=== PATIENT | male | born 1990 | race Caucasian/White ===

== ENCOUNTER 2017-03-11 16:01 | Emergency (ER) | payer OTHER ==
[~2017-03-11] VITALS: Ht 167.6 cm; Wt 68.0 kg
[2017-03-11 16:18] VITALS: BP 136/84; PULSE 101; RESP 16; TEMP 99.1; O2SAT 97
[2017-03-11] MEDS ORDERED: POLY17S PO (16:31)
[2017-03-11] MEDS ORDERED: TRAZ100T6 PO (16:31)
[2017-03-11] MEDS ORDERED: CARB200T PO (16:31)
[2017-03-11] MEDS ORDERED: DOCU100C PO (16:31)
[2017-03-11] MEDS ORDERED: CLON0.5T PO (16:31)
[2017-03-11] MEDS ORDERED: BUSP10TA PO (16:31)
[2017-03-11] MEDS ORDERED: ATOR10TA15 PO (16:31)
[2017-03-11] MEDS ORDERED: RISP4TAB2 PO (16:31)
[2017-03-11] MEDS ORDERED: HALOPERIDOL LACTATE 5 MG/ML AMP IM ONE (17:15)
[2017-03-11] MEDS ORDERED: LORazepam 2 MG/ML VIAL IM ONE (17:15)
--- NOTE | 2017-03-11 17:56 | PD ---
HPI Chief Complaint: Psychiatric Symptoms Time Seen by Provider: 17:03 Travel History International Travel<30 days: No Contact w/Intl Traveler<30days: No Traveled to known affect area: No History of Present Illness HPI 26-year-old male arrives by EMS. He has development delay and had been acting aggressively at his assisted living facility. He threw remote control. He has been sexually inappropriate with female staff. History is provided by the hvac service technician of the shelter who has had the patient now for 2 weeks and states that over the past 4 days he has become increasingly uncontrollable. There is been no change in his medication. He has had no fever or vomiting. [facility] Past Medical History Developmental Delay: Yes Tetanus Vaccination: Unknown Past Surgical History Surgical History: Unable to Obtain Social History Alcohol Use: No Tobacco Use: No Substance Use: No Allergies-Medications (Allergen,Severity, Reaction): Coded Allergies: Unable to Assess (Verified Allergy, Unknown, 03/11/17) Reported Meds & Prescriptions Reported Meds & Active Scripts Active Reported Clonazepam 0.5 Mg Tab 0.5 Mg PO BID Polyethylene Glycol 3350 Powder (Polyethylene Glycol) 17 Gram Pow 17 Gm PO DAILY Atorvastatin (Atorvastatin Calcium) 10 Mg Tab 10 Mg PO HS Trazodone (Trazodone HCl) 100 Mg Tablet 100 Mg PO HS Carbamazepine 200 Mg Tab 200 Mg PO TID Buspirone (Buspirone HCl) 10 Mg Tab 10 Mg PO BID Docusate Sodium 100 Mg Cap 50 Mg PO BID Risperidone 4 Mg Tab 4 Mg PO Q12HR Review of Systems Except as stated in HPI: all other systems reviewed are Neg Physical Exam Narrative GENERAL: Well-nourished well-developed 26-year-old male SKIN: Warm and dry. HEAD: Atraumatic. Normocephalic. EYES: Pupils equal and round. No scleral icterus. No injection or drainage. ENT: No nasal bleeding or discharge. Mucous membranes pink and moist. NECK: Trachea midline. No JVD. CARDIOVASCULAR: Appears well perfused. RESPIRATORY: No accessory muscle use. No visible tachypnea. GASTROINTESTINAL: Deferred 2/2 uncooperative state. MUSCULOSKELETAL: Extremities without clubbing, cyanosis, or edema. No obvious deformities. NEUROLOGICAL: Awake and alert. No obvious cranial nerve deficits. Motor grossly within normal limits. Five out of 5 muscle strength in the arms and legs. PSYCHIATRIC: Screen is on occasion intermittently. Smiles when examiner enters the room. Data Data Last Documented VS Vital Signs Date Time Temp Pulse Resp B/P (MAP) Pulse Ox O2 Delivery O2 Flow Rate FiO2 03/11/17 16:18 99.1 101 16 136/84 (101) 97 Vital signs reviewed Orders Orders Complete Blood Count With Diff (03/11/17 17:13) Comprehensive Metabolic Panel (03/11/17 17:13) Psych Screen (03/11/17 17:13) Haloperidol Inj (Haldol Inj) (03/11/17 17:15) Lorazepam Inj (Ativan Inj) (03/11/17 17:15) Drug Screen, Random Urine (03/11/17 17:13) MDM Medical Decision Making Medical Screen Exam Complete: Yes Emergency Medical Condition: Yes Medical Record Reviewed: Yes Differential Diagnosis Altered mental status/psychosis due to infection/environmental exposure/ metabolic abnormality, polypharmacy, alcohol abuse/intoxication, illicit or prescribed drug abuse, malingering/secondary gain, non-organic psychiatric disease Narrative Course In the case at hand that is considered doubtful that blood work would be useful in determining this cause for this patient's aggressive and sexually inappropriate behavior. He is considered medically stable. Diagnosis Primary Impression: Aggressive behavior Additional Impression: Inappropriate sexual behavior Bao Cannon MD Mar 11, 2017 17:56
[2017-03-12 06:21] VITALS: RESP 18
--- NOTE | 2017-03-12 11:52 | PD ---
History of Present Illness Chief Complaint: Psychiatric Symptoms Time Seen by Provider: 10:00 Travel History International Travel<30 Days: No Contact w/Intl Traveler<30days: No Known affected area: No Legal Status Legal Status: Russell Act History of Present Illness: 26-year-old male Drew acted for inappropriate behavior at a correction. Patient's inappropriate behavior was both physical and sexually oriented. However, patient obviously suffers from a significant developmental disability and is mentally retarded. The Russell act does not apply to individuals with developmental disabilities and the patient is not a behavior issue in this emergency department. He was evaluated by this physician and person and the case was discussed with the nurse, Adrienne. This physician notes from the medical record the patient's medicines have not changed recently. This physician feels strongly the patient needs to be taken back to the prescriber of the medicines in order to have them changed to stabilize the patient. Patient will not benefit from psychiatric hospitalization and does not qualify for Russell act. He is exhibiting no suicidal or homicidal ideation, plan or intent. He is exhibiting no evidence of psychotic symptoms. His cognition appears to be baseline. He has not a behavior problem here in the emergency department. [facility] Past Medical History Developmental Delay: Yes Tetanus Vaccination: Unknown Past Surgical History Surgical History: Unable to Obtain Psychiatric History Psychiatric History Hx Psychiatric Treatment: No psychiatric history at this facility. History of Inpatient Treatment: No Social History Hx Alcohol Use: No Hx Tobacco Use: No Hx Substance Use: No Allergies-Medications (Allergen,Severity, Reaction): Coded Allergies: Unable to Assess (Verified Allergy, Unknown, 03/11/17) Reported Meds & Prescriptions Reported Meds & Active Scripts Active Reported Clonazepam 0.5 Mg Tab 0.5 Mg PO BID Polyethylene Glycol 3350 Powder (Polyethylene Glycol) 17 Gram Pow 17 Gm PO DAILY Atorvastatin (Atorvastatin Calcium) 10 Mg Tab 10 Mg PO HS Trazodone (Trazodone HCl) 100 Mg Tablet 100 Mg PO HS Carbamazepine 200 Mg Tab 200 Mg PO TID Buspirone (Buspirone HCl) 10 Mg Tab 10 Mg PO BID Docusate Sodium 100 Mg Cap 50 Mg PO BID Risperidone 4 Mg Tab 4 Mg PO Q12HR Review of Systems Except as stated in HPI: all other systems reviewed are Neg Exam Alert: Yes [place]: Person Mood: Calm Affect: Restricted Speech: Slurred Eye Contact: Indirect Insight/Judgement Impaired but baseline. MDM Medical Decision Making Medical Record Reviewed: Yes Assessment/Plan Patient does not qualify for Russell act and it is being lifted by this physician. [facility] will be contacted and asked to take patient to outpatient prescriber. If patient is having difficulty at correction, medication changes are warranted. This does not require inpatient psychiatric hospitalization. Patient unlikely to gain any significant advantage from psychiatric hospitalization. Orders Orders Complete Blood Count With Diff (03/11/17 17:13) Comprehensive Metabolic Panel (03/11/17 17:13) Psych Screen (03/11/17 17:13) Haloperidol Inj (Haldol Inj) (03/11/17 17:15) Lorazepam Inj (Ativan Inj) (03/11/17 17:15) Drug Screen, Random Urine (03/11/17 17:13) Diet Regular Basic (03/12/17 Breakfast) Diet Regular Basic (03/12/17 Lunch) Results Vital Signs Date Time Temp Pulse Resp B/P (MAP) Pulse Ox O2 Delivery O2 Flow Rate FiO2 03/12/17 06:21 18 03/11/17 16:18 99.1 101 16 136/84 (101) 97 Diagnosis Primary Impression: Mental retardation Guillermo Castro MD Mar 12, 2017 11:51
--- NOTE | 2017-03-12 12:04 | PD ---
Physical Exam Date Seen by Provider: Mar 12, 2017 Time Seen by Provider: 12:03 Narrative 26 yr old male here initially under Russell Act. Seen by Psych and BA lifted. Cleared for discharge back to [facility]. Patient is non verbal. Data Data Last Documented VS Vital Signs Date Time Temp Pulse Resp B/P (MAP) Pulse Ox O2 Delivery O2 Flow Rate FiO2 03/12/17 06:21 18 03/11/17 16:18 99.1 101 136/84 (101) 97 Orders Orders Complete Blood Count With Diff (03/11/17 17:13) Comprehensive Metabolic Panel (03/11/17 17:13) Psych Screen (03/11/17 17:13) Haloperidol Inj (Haldol Inj) (03/11/17 17:15) Lorazepam Inj (Ativan Inj) (03/11/17 17:15) Drug Screen, Random Urine (03/11/17 17:13) Diet Regular Basic (03/12/17 Breakfast) Diet Regular Basic (03/12/17 Lunch) MDM Medical Record Reviewed: Yes Supervised Visit with KAILA: No Differential Diagnosis mental retardation Narrative Course patient cleared for discharge. Diagnosis Primary Impression: Mental retardation Patient Instructions: General Instructions Disposition: 01 DISCHARGE HOME Condition: Stable Alecia Cantu Mar 12, 2017 12:03
[2017-03-12] MEDS ORDERED: clonazePAM 1 MG TAB PO ONE (14:00)
== END 2017-03-12 14:20 | disposition home or self-care (01) ==
LOC: NEPC 16:01 → NEPJ 03-12 14:20
DX: F79 Unspecified intellectual disabilities (principal); F91.8 Other conduct disorders; Z79.899 Other long term (current) drug therapy
CPT/HCPCS: 96372; 99284; J1630; J2060

== ENCOUNTER 2017-03-14 14:14 | Emergency (ER) | payer OTHER ==
[~2017-03-14 14:14] MED LIST: ATOR10TA15 PO; BUSP10TA PO; CARB200T PO; CLON0.5T PO; DOCU100C PO; POLY17S PO; RISP4TAB2 PO; TRAZ100T6 PO
--- NOTE | 2017-03-14 14:38 | PD ---
HPI Chief Complaint: Psychiatric Symptoms Time Seen by Provider: 14:36 Travel History International Travel<30 days: No Contact w/Intl Traveler<30days: No History of Present Illness HPI 26 Yo M with PMH of MR presents to the ED under Russell Act from [facility] for evaluation of inappropriate sexual behavior and some aggressive behaviors in the correction. The patient is nonverbal. He withdrawals from stimulation and is known to be violent with caregivers. Exam and history gathering are limited by these factors. PFSH Past Medical History Developmental Delay: Yes Social History Alcohol Use: No Tobacco Use: No Substance Use: No Allergies-Medications (Allergen,Severity, Reaction): Coded Allergies: No Allergy Information Available (Verified Allergy, Unknown, 03/14/17) Per - "[facility] [place] [facility]" [facility] - Kait Ojeda [phone] - patient has NKA but she clarified that she has not had him as a client for that long. Unable to Assess (Verified Allergy, Unknown, 03/11/17) Reported Meds & Prescriptions Reported Meds & Active Scripts Active Klonopin (Clonazepam) 1 Mg Tab 1 Mg PO BID Reported Clonazepam 0.5 Mg Tab 0.5 Mg PO BID Polyethylene Glycol 3350 Powder (Polyethylene Glycol) 17 Gram Pow 17 Gm PO DAILY Atorvastatin (Atorvastatin Calcium) 10 Mg Tab 10 Mg PO HS Trazodone (Trazodone HCl) 100 Mg Tablet 100 Mg PO HS Carbamazepine 200 Mg Tab 200 Mg PO TID Buspirone (Buspirone HCl) 10 Mg Tab 10 Mg PO BID Docusate Sodium 100 Mg Cap 50 Mg PO BID Risperidone 4 Mg Tab 4 Mg PO Q12HR Review of Systems ROS Limitations: Uncooperative, Combative, Speech Impaired Except as stated in HPI: all other systems reviewed are Neg Physical Exam Narrative GENERAL: Well-nourished white male in NAD. SKIN: Focused skin assessment warm/dry. EYES: No scleral icterus. No injection or drainage. NECK: No JVD. CARDIOVASCULAR: Unable to obtain RESPIRATORY: No retractions or accessory muscle use. GASTROINTESTINAL: Able to obtain MUSCULOSKELETAL: No cyanosis, or edema. BACK: No obvious deformity. Data Data Last Documented VS Vital Signs Date Time Temp Pulse Resp B/P (MAP) Pulse Ox O2 Delivery O2 Flow Rate FiO2 03/14/17 18:05 03/14/17 15:42 97.6 87 18 98 Room Air Orders Orders Ziprasidone Inj (Geodon Inj) (03/14/17 14:45) Case Management Consult (03/14/17 ) [facility] Medical Decision Making Medical Screen Exam Complete: Yes Emergency Medical Condition: Yes Differential Diagnosis Adjustment disorder versus anxiety versus bipolar versus depression versus dementia versus electrolyte disorder versus malingering versus mood disorder versus ODD versus psychosis versus PTSD versus schizophrenia versus schizoaffective disorder versus substance-induced mood disorder versus other Narrative Course 26 Yo M with PMH of MR presents to the ED under Drew Act from [facility] for evaluation of inappropriate sexual behavior and some aggressive behaviors in the correction. The patient is nonverbal. He withdrawals from stimulation and is known to be violent with caregivers. Exam and history gathering are limited by these factors. Vitals reviewed. Limited physical exam is unremarkable. Patient was administered 20 Geodon IM. She was an attempt to calm the patient down in order to obtain some lab work but was on successful. He was evaluated by the psych screener and a Russell act was lifted. The coordinator at his correction agrees to accept the patient back. However she requested that he be provided some medications to calm the patient aggressive behavior. Patient was seen earlier this week and discharged after a dose of Klonopin which seemed to escalate his behavior. We'll prescribe 1 mg Klonopin twice a day and have the patient follow-up with [facility]. He is stable and discharged home. Diagnosis Primary Impression: Mental retardation Additional Impressions: Inappropriate sexual behavior Socially inappropriate behavior Referrals: Primary Care Physician Psychiatrist [facility] Additional Instructions: Begin Klonopin as prescribed tomorrow. Follow-up with [facility] as planned. Return to the ED for any urgent or emergent medical condition. Med/Other Pt SpecificInfo: Prescription(s) given Scripts Clonazepam (Klonopin) 1 Mg Tab 1 MG PO BID, #60 TAB 0 Refills Prov: Guero William MD 03/14/17 Disposition: 01 DISCHARGE HOME Condition: Stable Mary Jo Awan Mar 14, 2017 14:38
[2017-03-14] MEDS ORDERED: ZIPRASIDONE MESYLATE 20 MG VIAL IM ONE (14:45)
[2017-03-14] MEDS ORDERED: diphenhydrAMINE HCL 50 MG/ML VIAL IM ONE (14:45)
[2017-03-14] MEDS ORDERED: LORazepam 2 MG/ML VIAL IM ONE (14:45)
[2017-03-14] MEDS ORDERED: HALOPERIDOL LACTATE 5 MG/ML AMP IM ONE (14:45)
[2017-03-14 15:42] VITALS: BP 124/66; PULSE 87; RESP 18; TEMP 97.6; O2SAT 98
[2017-03-14] MEDS ORDERED: CLON1 PO (16:38)
== END 2017-03-14 18:09 | disposition home or self-care (01) ==
LOC: NEPJ 14:14
DX: F79 Unspecified intellectual disabilities (principal)
CPT/HCPCS: 96372; 99285; J3486

== ENCOUNTER 2017-04-04 16:57 | Observation (INO) | payer OTHER ==
[~2017-04-04 16:57] MED LIST changes: +CLON1 PO
--- NOTE | 2017-04-04 17:30 | PD ---
History of Present Illness Chief Complaint: Psychiatric Symptoms Time Seen by Provider: 17:15 Travel History International Travel<30 Days: No Contact w/Intl Traveler<30days: No Known affected area: No Legal Status Legal Status: [employer] Act History of Present Illness: 26-year-old male with history of developmental disability, well known to this physician and the emergency department staff, brought in under a Russell act for aggressive behavior at his long term. According to the Russell act, Joesph " for up" his long term and needs his medications fixed. At the present time, the patient is calm and cooperative. He is cognitively limited but this is his baseline. He has not answering questions with this physician. He is sitting with his mouth open, watching what goes around him. Patient's developmental disability is considered significant in that he is a poor historian and unable to provide any significant information regarding his condition or what happened prior to his Russell act today. However, the patient is not engaging in any aggressive manner towards himself or anyone else at this point. Therefore, this physician does not have reason to "medicate" him. In fact, the patient can be treated as an outpatient if medication adjustments are necessary. This physician is aware of the Russell act laws are not supposed to be utilized for individuals with a developmental disability. PFSH Past Medical History Cerebral Palsy: Yes Developmental Delay: Yes Psychiatric History Psychiatric History Hx Psychiatric Treatment: No psychiatric history at this facility. History of Inpatient Treatment: No Guns or firearms in home: No Social History Hx Alcohol Use: No Hx Tobacco Use: No Hx Substance Use: No Hx of Substance Use Treatment: No Allergies-Medications (Allergen,Severity, Reaction): Coded Allergies: No Allergy Information Available (Verified Allergy, Unknown, 03/14/17) Per - "[facility] [place] [facility]" Assisted - Kait Eliza [phone] - patient has NKA but she clarified that she has not had him as a client for that long. Unable to Assess (Verified Allergy, Unknown, 03/11/17) Reported Meds & Prescriptions Reported Meds & Active Scripts Active Klonopin (Clonazepam) 1 Mg Tab 1 Mg PO BID Reported Clonazepam 0.5 Mg Tab 0.5 Mg PO BID Polyethylene Glycol 3350 Powder (Polyethylene Glycol) 17 Gram Pow 17 Gm PO DAILY Atorvastatin (Atorvastatin Calcium) 10 Mg Tab 10 Mg PO HS Trazodone (Trazodone HCl) 100 Mg Tablet 100 Mg PO HS Carbamazepine 200 Mg Tab 200 Mg PO TID Buspirone (Buspirone HCl) 10 Mg Tab 10 Mg PO BID Docusate Sodium 100 Mg Cap 50 Mg PO BID Risperidone 4 Mg Tab 4 Mg PO Q12HR Review of Systems Except as stated in HPI: all other systems reviewed are Neg Mental Status Examination Appearance: Disheveled Consciousness: Alert Orientation: Person, Place Motor Activity: Normal gait Speech: Other Language: Other Fund of Knowledge: Poor Attention and Concentration: Inadequate Memory: Impaired Mood: Other Affect: Blunt Thought Process & Associations: Other Thought Content: Appropriate Hallucination Type: None Delusion Type: None Suicidal Ideation: No Suicidal Plan: No Suicidal Intention: No Homicidal Ideation: No Homicidal Plan: No Homicidal Intention: No Insight: Fair Judgment: Impulsive Mental Status Exam Remarks Mental status is felt to be baseline at this time. [facility] Medical Decision Making Medical Record Reviewed: Yes Assessment/Plan This physician examined the patient, spoke with his nurse, Adrienne and reviewed the medical record. Apparently the long term does not wish to take the patient back because they feel he is intermittently dangerous. At this point, the patient remains calm, pleasant, smiling, etc. The long term person , Ms. Guerra, informs our staff that the patient's last appointment at [facility] was met with a decrease in the patient's medications. She feels this has been detrimental to the patient's behavior and would like the medicines reasserted in order to stabilize the patient's mood and aggressiveness. This physician is willing to do so, as medication management is the only methodology by which the patient's intermittent explosive behavior can be stabilized. However, the patient does not benefit from inpatient psychiatric hospitalization and this physician feels the patient's Russell act was inappropriately instituted by law enforcement. Orders Orders Complete Blood Count With Diff (04/04/17 17:22) Comprehensive Metabolic Panel (04/04/17 17:22) Psych Screen (04/04/17 17:22) Drug Screen, Random Urine (04/04/17 17:22) Alcohol (Ethanol) (04/04/17 17:22) Salicylates (Aspirin) (04/04/17 17:22) Tylenol (Acetaminophen) (04/04/17 17:22) Diagnosis Primary Impression: Intermittent explosive disorder Guillermo Castro MD Apr 04, 2017 17:30
--- NOTE | 2017-04-04 17:55 | PD ---
HPI Chief Complaint: Psychiatric Symptoms Time Seen by Provider: 17:23 Travel History International Travel<30 days: No Contact w/Intl Traveler<30days: No Traveled to known affect area: No History of Present Illness HPI 26-year-old male that presents to the ED for evaluation of Drew chisholm. Patient was Drew acted by police secondary to aggressive behavior. Patient has a history of mental illness and is developmentally delayed. For the most part per report patient has been aggressive and breaking stuff and staff at the halfway where he stays our concern for their safety. Patient was Drew acted for his own safety. Patient apparently had some of his medications lower by a psychiatrist recently. He apparently is more aggressive and inappropriate with female provider stand male providers. He voices no complaints but again history is limited secondary to his mental illness. He has no allergies to medication. No other medical issues. PFSH Past Medical History Cerebral Palsy: Yes Developmental Delay: Yes ?: Not Social History Alcohol Use: No Tobacco Use: No Substance Use: No Allergies-Medications (Allergen,Severity, Reaction): Coded Allergies: No Allergy Information Available (Verified Allergy, Unknown, 03/14/17) Per - "[facility] [place] [facility]" [phone] - patient has NKA but she clarified that she has not had him as a client for that long. Unable to Assess (Verified Allergy, Unknown, 03/11/17) Reported Meds & Prescriptions Reported Meds & Active Scripts Active Reported Risperdal (Risperidone) 1 Mg Tab 1 Mg PO DAILY Risperidone 2 Mg Tab 2 Mg PO Q12HR Carbamazepine 200 Mg Tab 150 Mg PO DAILY START ON 11/09/16 Carbamazepine 200 Mg Tab 150 Mg PO BID START ON 11/04/16 Carbamazepine 200 Mg Tab 300 Mg PO BID 1 Days Trazodone (Trazodone HCl) 150 Mg Tablet 150 Mg PO HS Klonopin (Clonazepam) 0.5 Mg Tab 0.5 Mg PO TID Polyethylene Glycol 3350 Powder (Polyethylene Glycol) 17 Gram Pow 17 Gm PO DAILY Atorvastatin (Atorvastatin Calcium) 10 Mg Tab 10 Mg PO HS Buspirone (Buspirone HCl) 10 Mg Tab 10 Mg PO BID Docusate Sodium 100 Mg Cap 50 Mg PO BID Review of Systems ROS Limitations: Poor Historian Except as stated in HPI: all other systems reviewed are Neg Physical Exam Exam Limitations: Poor Historian Narrative GENERAL: SKIN: Warm and dry. HEAD: Atraumatic. Normocephalic. EYES: Pupils equal and round. No scleral icterus. No injection or drainage. ENT: No nasal bleeding or discharge. Mucous membranes pink and moist. Tongue is midline. No blood deviation. NECK: Trachea midline. No JVD. CARDIOVASCULAR: Regular rate and rhythm. No murmurs, S3, S4. RESPIRATORY: No accessory muscle use. Clear to auscultation. Breath sounds equal bilaterally. GASTROINTESTINAL: Abdomen soft, non-tender, nondistended. Hepatic and splenic margins not palpable. MUSCULOSKELETAL: Extremities without clubbing, cyanosis, or edema. No obvious deformities. Full range of motion of the upper and lower extremities bilaterally. 2+ pulses bilaterally. NEUROLOGICAL: Awake and alert. No obvious cranial nerve deficits. Motor grossly within normal limits. Five out of 5 muscle strength in the arms and legs. Normal speech. PSYCHIATRIC: Appropriate mood and affect; insight and judgment questionable. Data Data Orders Orders Psych Screen (04/04/17 17:22) Place In Observation (04/04/17 ) Vital Signs (Adult) Q4H (04/04/17 20:54) Activity Oob With Assistance (04/04/17 20:54) Diet Regular Basic (04/05/17 Breakfast) Sodium Chloride 0.9% Flush (Ns Flush) (04/04/17 21:00) Sodium Chloride 0.9% Flush (Ns Flush) (04/04/17 21:00) Case Management Consult (04/04/17 20:54) Scd Bilateral/Knee High JEANNETTE.BID (04/04/17 20:54) Dru Bilateral/Knee High JEANNETTE.QSHIFT (04/04/17 21:00) Acetaminophen (Tylenol) (04/04/17 21:00) Docusate Sodium-Senna (Tara-Colace) (04/04/17 21:00) Magnesium Hydroxide Liq (Milk Of Magnesi (04/04/17 21:00) Sennosides (Senokot) (04/04/17 21:00) Bisacodyl Supp (Dulcolax Supp) (04/04/17 21:00) Lactulose Liq (Lactulose Liq) (04/04/17 21:00) Buspirone (Buspar) (04/04/17 21:00) Carbamazepine (Tegretol) (04/04/17 21:00) (Nf) Risperidone (04/04/17 21:00) (Nf) Trazodone (04/04/17 21:00) Clonazepam (Klonopin) (04/05/17 09:00) Risperidone (Risperdal) (04/05/17 09:00) Admit Order (Ed Use Only) (04/04/17 21:00) MDM Medical Decision Making Medical Screen Exam Complete: Yes Emergency Medical Condition: Yes Medical Record Reviewed: Yes Differential Diagnosis Depression versus suicidal ideation versus anxiety versus adjustment disorder versus mood disorder versus bipolar disorder versus schizophrenia versus paranoid disorder versus psychosis versus substance abuse versus alcohol abuse versus alcohol induced psychosis versus homicidality addition versus cutting versus personality disorder Narrative Course 26-year-old male that presents for evaluation of psych. Patient was properly examined and was found to have signs and symptoms consistent psychiatric illness. No sign of acute medical distress last one drawn. Patient will be medically clear. Okay to be seen by psych. Russell act was lifted by the psychiatrist. Patient was deemed to be able to be released. Unfortunately the halfway where the patient resides will not accept him back. They want us to call the patient's social service individual. Case management going ball when the recommend 23 hour observation as they will not be able to place the patient until tomorrow at the earliest. Patient was discussed with Dr. Gooden who agrees to admission for FOR placement. Mental health screening was discussed with the patient. Diagnosis Primary Impression: Mentally disabled Additional Impression: Intermittent explosive disorder Admitting Information Admitting Physician Requests: Observation Adan Bradley Apr 04, 2017 17:55
[2017-04-04] MEDS ORDERED: CLON.5 PO (19:39)
[2017-04-04] MEDS ORDERED: CARB200T PO ×2 (19:39)
[2017-04-04] MEDS ORDERED: RISP2TAB2 PO (19:39)
[2017-04-04] MEDS ORDERED: RISP1 PO (19:39)
[2017-04-04] MEDS ORDERED: TRAZ1TAB45 PO (19:39)
[2017-04-04] MEDS ORDERED: SODIUM CHLORIDE 0.9% FLUSH 10 ML FLUSH IV FLUSH PRN (21:00)
[2017-04-04] MEDS: SODIUM CHLORIDE 0.9% FLUSH 10 ML FLUSH IV FLUSH SCH (21:00)
[2017-04-04] MEDS ORDERED: MAGNESIUM HYDROXIDE SUSP 30 ML CUP PO PRN (21:00)
[2017-04-04] MEDS: busPIRone HCL 10 MG TAB PO SCH (21:00)
[2017-04-04] MEDS: carBAMazepine 200 MG TAB PO SCH (21:00)
[2017-04-04] MEDS ORDERED: NON-FORMULARY DRUG (Trazodone 150 MG) PO SCH (21:00)
[2017-04-04] MEDS ORDERED: ACETAMINOPHEN 325 MG TAB PO PRN (21:00)
[2017-04-04] MEDS ORDERED: SENNOSIDES 8.6 MG TAB PO PRN (21:00)
[2017-04-04] MEDS ORDERED: RISPERIDONE 2 MG PO SCH (21:00)
[2017-04-04] MEDS ORDERED: LACTULOSE SYRUP 20 GM/30 ML CUP PO PRN (21:00)
[2017-04-04] MEDS: DOCUSATE SODIUM 50 MG/SENNA 8.6 MG TAB PO SCH (21:00)
[2017-04-04] MEDS ORDERED: BISACODYL 10 MG SUPP RECTAL PRN (21:00)
[2017-04-04] MEDS ORDERED: HYOS0.128 PO (21:04)
[2017-04-04] MEDS: traZODone HCL 50 MG TAB PO SCH (21:15)
[2017-04-04] MEDS ORDERED: PILL SPLITTER OTHER PRN (21:15)
[2017-04-04] MEDS: risperiDONE 1 MG TAB PO SCH (21:15)
--- NOTE | 2017-04-04 21:53 | HHI.HP ---
[facility] Unknown Admission Diagnosis mental delay, aggressive, needs placement Diagnoses: (1) Mentally disabled Diagnosis: Principal (2) Intermittent explosive disorder Diagnosis: Principal (3) Total self-care deficit Diagnosis: Principal Travel History International Travel<30 Days: No Contact w/Intl Traveler <30 Da: No Traveled to Known Affected Are: No History of Present Illness This is a 26-year-old male with PMH of Cerebral Palsy, Mental Retardation and Developmental Delay who was brought to the ER by Police under [place] [facility] from [facility] secondary to aggressive behavior. Initially admitted to [facility] s/p daniela by Psych, determined to have Intermittent Explosive Behavior and Russell Act lifted. [facility], however, will not [facility] pt secondary to violent behavior. Case Management consulted by ER physician, recommendation for Observation for placement. Review of Systems Except as stated in HPI: all other systems reviewed are Neg ROS: Unable to obtain. Past Family Social History Past Medical History PMH: Cerebral Palsy, Mental Retardation and Developmental Delay Past Surgical History PAST SURGICAL HISTORY: Unknown Allergies: Coded Allergies: No Allergy Information Available (Verified Allergy, Unknown, 03/14/17) Per - [phone] - patient has NKA but she clarified that she has not had him as a client for that long. Unable to Assess (Verified Allergy, Unknown, 03/11/17) Family History PAST FAMILY HISTORY: Reviewed. No h/o DM or CAD Social History PAST SOCIAL HISTORY: Negative for, tobacco or drugs. Physical Exam Physical Exam PE: GENERAL: Young male in no acute distress, mentally disabled. HEENT: PERRLA, EOMI. No scleral icterus or conjunctival pallor. No lid lag or facial droop. CARDIOVASCULAR: Regular rate and rhythm. No obvious murmurs to auscultation. No chest tenderness to palpation. RESPIRATORY: No obvious rhonchi or wheezing. Clear to auscultation. Breath sounds equal bilaterally. GASTROINTESTINAL: Abdomen soft, non-tender, nondistended. BS normal. MUSCULOSKELETAL: Extremities without clubbing, cyanosis, or edema. No obvious deformities. NEUROLOGICAL: Awake, alert. No focal neurologic deficits. Moving both upper and lower extremities spontaneously. Caprini VTE Risk Assessment Caprini VTE Risk Assessment: No/Low Risk (score <= 1) Caprini Risk Assessment Model Point Value = 1 Point Value = 2 Point Value = 3 Point Value = 5 Age 41-60 Minor surgery BMI > 25 kg/m2 Swollen legs Varicose veins or History of unexplained or recurrent spontaneous Oral contraceptives or hormone replacement Sepsis (< 1 month) Serious lung disease, including pneumonia (< 1 month) Abnormal pulmonary function Acute myocardial infarction Congestive heart failure (< 1 month) History of inflammatory bowel disease Medical patient at bed rest Age 61-74 Arthroscopic surgery Major open surgery (> 45 min) Laparoscopic surgery (> 45 min) Malignancy Confined to bed (> 72 hours) Immobilizing plaster cast Central venous access Age >= 75 History of VTE Family history of VTE Factor V Leiden Prothrombin [id number] Lupus anticoagulant Anticardiolipin antibodies Elevated serum homocysteine Heparin-induced thrombocytopenia Other congenital or acquired thrombophilia Stroke (< 1 month) Elective arthroplasty Hip, pelvis, or leg fracture Acute spinal cord injury (< 1 month) Prophylaxis Regimen Total Risk Factor Score Risk Level Prophylaxis Regimen 0-1 Low Early ambulation 2 Moderate Order ONE of the following: *Sequential Compression Device (SCD) *Heparin 5000 units SQ BID 3-4 Higher Order ONE of the following medications: *Heparin 5000 units SQ TID *Enoxaparin/Lovenox 40 mg SQ daily (WT < 150 kg, CrCl > 30 mL/min) *Enoxaparin/Lovenox 30 mg SQ daily (WT < 150 kg, CrCl > 10-29 mL/min) *Enoxaparin/Lovenox 30 mg SQ BID (WT < 150 kg, CrCl > 30 mL/min) AND/OR *Sequential Compression Device (SCD) 5 or more Highest Order ONE of the following medications: *Heparin 5000 units SQ TID (Preferred with Epidurals) *Enoxaparin/Lovenox 40 mg SQ daily (WT < 150 kg, CrCl > 30 mL/min) *Enoxaparin/Lovenox 30 mg SQ daily (WT < 150 kg, CrCl > 10-29 mL/min) *Enoxaparin/Lovenox 30 mg SQ BID (WT < 150 kg, CrCl > 30 mL/min) AND *Sequential Compression Device (SCD) Assessment and Plan Problem List: (1) Intermittent explosive disorder ICD Code: F63.81 - Intermittent explosive disorder Status: Acute (2) Mentally disabled ICD Code: F79 - Unspecified intellectual disabilities Status: Acute (3) Total self-care deficit ICD Code: R41.89 - Other symptoms and signs involving cognitive functions and awareness Assessment and Plan A/P: 1. Intermittent Explosive Disorder: [facility] under [place] [facility] for violent/aggressive behavior[facility] Russell Act lifted as pt w/ mental retardation. Resume home medications. Psych eval as needed. 2. Mentally Disabled: h/o Cerebral Palsy w/ Developmental Delay, at baseline. Resume home medications. 3. Total Self Care Deficit: unable to care for self, lives [facility], however home will not accept pt back in light of aggressive behavior. Case Management consulted by ER physician, recommendation for Obs admission in order to find placement. 4. DVT Prophylaxis: SCD/Teds. 5. Social work for d/c planning as needed. 6. Case discussed w/ ER physician at length. Sima Gooden MD Apr 04, 2017 21:53
[2017-04-04 23:14] VITALS: BP 111/57; PULSE 62; RESP 18; TEMP 98.1; O2SAT 97
[2017-04-05 03:19] VITALS: BP 134/87; PULSE 95; RESP 20; TEMP 97.9; O2SAT 97
[2017-04-05] MEDS ORDERED: LORazepam 2 MG/ML VIAL IM ONE (05:00)
[2017-04-05] MEDS ORDERED: HALOPERIDOL LACTATE 5 MG/ML AMP IM ONE (05:00)
[2017-04-05] MEDS ORDERED: HALOPERIDOL LACTATE 5 MG/ML AMP IM PRN ×3 (07:30→23:30)
[2017-04-05] MEDS: busPIRone HCL 10 MG TAB PO SCH ×2 (07:43→22:14)
[2017-04-05] MEDS: DOCUSATE SODIUM 50 MG/SENNA 8.6 MG TAB PO SCH ×2 (07:43→22:14)
[2017-04-05] MEDS: risperiDONE 1 MG TAB PO SCH (07:44)
[2017-04-05] MEDS: clonazePAM 0.5 MG TAB PO SCH ×3 (07:44→17:19)
[2017-04-05] MEDS: carBAMazepine 200 MG TAB PO SCH ×2 (07:44→21:00)
[2017-04-05 07:47] VITALS: BP 128/82; PULSE 82
[2017-04-05] MEDS: SODIUM CHLORIDE 0.9% FLUSH 10 ML FLUSH IV FLUSH SCH ×2 (09:00→21:00)
[2017-04-05] MEDS ORDERED: risperiDONE 1 MG TAB PO SCH (09:00)
[2017-04-05] MEDS ORDERED: CLON0.5T PO (09:22)
--- NOTE | 2017-04-05 10:35 | HHI.PR ---
Subjective Remarks Follow-up for mental retardation and agitation. Patient seen with RN at bedside. The patient was agitated and non-redirectable earlier today and received Haldol. The patient continued to try to ambulate unsteadily after receiving Haldol and had to be placed in soft restraints. The patient is reportedly nonverbal at baseline. A bit sleepy after receiving Haldol but awakens and responds to soft voice. He does not answer/is not able to answer any questions on medical review of systems. RN confirming home medication list. Objective Vitals Vital Signs Date Time Temp Pulse Resp B/P (MAP) Pulse Ox O2 Delivery O2 Flow Rate FiO2 04/05/17 07:47 82 128/82 (97) 04/05/17 03:19 97.9 95 20 134/87 (103) 97 04/04/17 23:14 98.1 62 18 111/57 (75) 97 I/O 04/04/17 04/04/17 04/04/17 04/05/17 04/05/17 04/05/17 07:00 15:00 23:00 07:00 15:00 23:00 Intake Total 60 ml Balance 60 ml Intake Oral 60 ml Objective Remarks GENERAL: Well-developed well-nourished. Sleepy after receiving Haldol but in no acute distress. In soft restraints. SKIN: Warm and dry. No lesions noted. CARDIOVASCULAR: Regular rate and rhythm. No murmur appreciated. RESPIRATORY: No accessory muscle use. Clear to auscultation. Breath sounds equal bilaterally. GASTROINTESTINAL: Abdomen soft, non-tender, nondistended. Bowel sounds x4. MUSCULOSKELETAL: No obvious deformities. No clubbing or cyanosis. No edema. NEUROLOGICAL: Awake and alert. Responds to voice. Moves upper and lower extremities spontaneously. Nonverbal. PSYCHIATRIC: Delayed mood and affect; insight and judgment poor. A/P Problem List: (1) Intermittent explosive disorder ICD Code: F63.81 - Intermittent explosive disorder Status: Acute (2) Mentally disabled ICD Code: F79 - Unspecified intellectual disabilities Status: Chronic Assessment and Plan 26-year-old male with PMH of Cerebral Palsy, Mental Retardation and Developmental Delay who was brought to the ER by Police under Russell Act from [facility] secondary to aggressive behavior. Initially admitted to od, s/p eval by Psych, determined to have Intermittent Explosive Behavior and Russell Act lifted. Retirement, however, will not accept pt secondary to violent behavior. Intermittent Explosive Disorder: sent to ER from [facility] under [place] Act for violent/aggressive behavior, s/p eval by Pscyhiatry, Russell Act lifted as pt w/ mental retardation. RN attempting to reconcile home medications, will resume once reconciled. Will likely consult psychiatry to assist with medication adjustments for continued agitation. Haldol and restraints as needed for now. Mentally Disabled: h/o Cerebral Palsy w/ Developmental Delay, at baseline. Continue home medications. Total Self Care Deficit: unable to care for self secondary to the above, lives [facility], however home will not accept pt back in light of aggressive behavior. Case Management consulted for assistance with safe discharge planning. DVT Prophylaxis: SCD/Teds. Discharge Planning [facility]charge back to [facility] when accepted. Andres Alcaraz Apr 05, 2017 10:35
[2017-04-05 13:56] LABS: BACTERIA, URINE RARE /hpf; BLOOD, URINE NEG (NEG); COMMENT (UR) CULT NOT INDICATED; CULTURE IF INDICATED CULT NOT INDICATED; GLUCOSE,URINE NEG (NEG); KETONE, URINE NEG (NEG); NITRITE,URINE NEG (NEG); PH, URINE 6.5 (5.0-8.5); URINE COLOR LIGHT-YELLOW (YELLW/STRAW)
--- NOTE | 2017-04-05 15:55 | EKG ---
Date Performed: 04/05/2017 Time Performed: 13:16:05 PTAGE: 26 years EKG: Sinus rhythm NORMAL ECG NO PREVIOUS TRACING DOCTOR: Anthony Navarro Interpretating Date/Time 04/05/2017 15:53:56
[2017-04-05 16:02] LABS: AUTOMATED NEUTROPHIL # 5.8 TH/MM3 (1.8-7.7); BASOPHIL % 0.3 % (0.0-2.0); EOSINOPHIL # 0.3 TH/MM3 (0-0.4); EOSINOPHIL % 3.4 % (0.0-4.0); HEMATOCRIT 42.9 % (39.0-51.0); HEMO FLAGS DIFF FINAL; LYMPH % 23.1 % (9.0-44.0); MEAN CELL VOLUME 92.7 FL (80.0-100.0); MEAN CORPUSCULAR HEMOGLOBIN 31.8 PG (27.0-34.0); MEAN CORPUSCULAR HGB CONC 34.2 % (32.0-36.0); MONO % 7.2 % (0.0-8.0); PLATELET COUNT 213 TH/MM3 (150-450); RED BLOOD COUNT 4.63 MIL/MM3 (4.50-5.90); RED CELL DISTRIBUTION WIDTH 12.4 % (11.6-17.2); WHITE BLOOD COUNT 8.8 TH/MM3 (4.0-11.0)
[2017-04-05 16:09] VITALS: BP 120/80; PULSE 93; RESP 20; TEMP 96.8; O2SAT 98
--- NOTE | 2017-04-05 16:14 | HHI.PYPN ---
Subjective Remarks Patient seen and examined. Chart reviewed. Dr. Castro's consultation reviewed. Case discussed with RN who reports that patient was grabbing at items this morning. He received Haldol PRN but was subsequently unsteady and had to be placed into soft wrist restraints. On my exam, patient is presently calm. He is non-verbal. He remains in soft wrist restraints. He is sleeping but easily aroused. Once awakened, he begins rocking in his bed. He does not follow simple commands. Affect is childlike but generally euthymic. No evident side effects from medications. No complaints of pain, when asked. MAR from [employer] reviewed. I note patient has been undergoing recent tapers of several of his psychotropics. In particular, it appears that Klonopin was tapered from 1.5mg BID to 0.5mg TID on 03/31. Risperdal was also tapered from 6mg BID to ?2mg BID (MAR is unclear) around the same time. There was also a planned taper of CBS. His trazodone 150mg qHS and BuSpar 10mg BID appear to have been continued unchanged. I tried to reach out to patient's outpatient prescriber, Delphine Valentine. I left with Ms. Valentine's nurse requesting a call back to discuss rationale for recent med changes. Chief Complaint: Med management Review of Systems ROS Limitations: Speech Impaired, Poor Historian Other Limited ROS because of limitations associated with intellectual disability Mental Status Examination Appearance: Disheveled Consciousness: Alert Orientation: Person (seems to recognize name) Speech: Other (non-verbal) Language: Other (N/A) Fund of Knowledge: Poor (suspect poor) Attention and Concentration: Inadequate Memory: Impaired Mood: Other (unable to assess) Affect: Euthymic, Other (childlike) Thought Process & Associations: Other (unable to assess) Thought Content: Other (unable to assess) Hallucination Type: None (does not appear int stim) Delusion Type: None (unable to assess) Suicidal Ideation: No Suicidal Plan: No Suicidal Intention: No Homicidal Ideation: No Homicidal Plan: No Homicidal Intention: No Insight: Poor Judgment: Poor Mental Status Exam Remarks No hand tremor, no cog-wheeling, no dystonias, no dyskinesias noted. Results Labs Item Value Date Time White Blood Count 8.8 TH/MM3 04/05/17 1530 Hemoglobin 14.7 GM/DL 04/05/17 1530 Platelet Count 213 TH/MM3 04/05/17 1530 Potassium Level 3.7 MEQ/L 04/05/17 1530 Sodium Level 137 MEQ/L 04/05/17 1530 Chloride Level 102 MEQ/L 04/05/17 1530 Carbon Dioxide Level 28.1 MEQ/L 04/05/17 1530 Blood Urea Nitrogen 10 MG/DL 04/05/17 1530 Creatinine 0.77 MG/DL 04/05/17 1530 Random Glucose 108 MG/DL H 04/05/17 1530 Aspartate Amino Transf (AST/SGOT) 21 U/L 04/05/17 1530 Albumin 3.6 GM/DL 04/05/17 1530 Item Value Date Time Alanine Aminotransferase (ALT/SGPT) 27 U/L 04/05/17 1530 Alkaline Phosphatase 109 U/L 04/05/17 1530 No CBZ level obtained, EKG NSR with QTc 378ms. Vitals/IOs Vital Signs Date Time Temp Pulse Resp B/P (MAP) Pulse Ox O2 Delivery O2 Flow Rate FiO2 04/05/17 07:47 82 128/82 (97) 04/05/17 03:19 97.9 20 97 Intake and Output 04/05/17 04/05/17 04/06/17 08:00 16:00 00:00 Intake Total 60 ml Balance 60 ml Assessment & Plan Problem List: (1) Intermittent explosive disorder ICD Codes: F63.81 - Intermittent explosive disorder Status: Acute (2) Intellectual disability ICD Codes: F79 - Unspecified intellectual disabilities Assessment & Plan It appears outpatient provider was in process of taper of most of patient's psychotropics, rationale presently unclear. I also see in Dr. Castro's note that tapering of meds may have resulted in worsening of behaviors in the setting of patient's intellectual disability. Decrement in patient's Risperdal seems particularly abrupt if MAR is accurate (12mg total daily dose to 4mg total daily dose). Given problematic behaviors in [facility]U, I think it makes sense to re-titrate this agent to start. Recommend following med regimen, with further adjustments as necessitated by behaviors: --Titrate Risperdal to 3mg BID with plans for further titration if needed --Continue CBZ 300mg BID and check a level tomorrow morning to ensure it is not too high. Check follow-up level in 4 days to ensure level remains stable and within the therapeutic range. --Continue Klonopin 0.5mg TID. --Continue trazodone 150mg qHS. --Continue BuSpar 10mg BID. --Continue Haldol PRN as ordered. --I will apprise Dr. Choe of the case Wednesday. Case d/w PA in [facility] Evonne Alcaraz. Thank you for this consultation. Justification for Cont. Inpt. Per primary team. Request HC Surrog/Guard Advoc?: No Anthony Disla MD Apr 05, 2017 16:14
[2017-04-05 16:15] LABS: ANION GAP 7 MEQ/L (5-15); AST (GOT) 21 U/L (15-37); BICARBONATE 28.1 MEQ/L (21.0-32.0); BLOOD UREA NITROGEN 10 MG/DL (7-18); CHLORIDE 102 MEQ/L (98-107); GLOMERULAR FILTRATION RATE 121 ML/MIN (>89); POTASSIUM 3.7 MEQ/L (3.5-5.1); SODIUM (NA) 137 MEQ/L (136-145)
[2017-04-05 16:20] LABS: ALKALINE PHOSPHATASE 109 U/L (45-117); ALT (GPT) 27 U/L (12-78); TOTAL BILIRUBIN ADULT 0.2 MG/DL (0.2-1.0)
[2017-04-05 19:52] VITALS: BP 128/75; PULSE 90; RESP 18; TEMP 98.1; O2SAT 97
[2017-04-05] MEDS: risperiDONE ODT 3 MG TAB PO SCH (22:13)
[2017-04-05] MEDS: HYOSCYAMINE 0.125 MG TAB PO SCH (22:14)
[2017-04-05] MEDS: traZODone HCL 50 MG TAB PO SCH (22:14)
[2017-04-05 23:12] VITALS: BP 124/70; PULSE 89; RESP 18; TEMP 98; O2SAT 98
[2017-04-06] MEDS: clonazePAM 0.5 MG TAB PO SCH (08:26)
[2017-04-06] MEDS: HYOSCYAMINE 0.125 MG TAB PO SCH (08:27)
[2017-04-06] MEDS: risperiDONE ODT 3 MG TAB PO SCH (08:27)
[2017-04-06] MEDS: busPIRone HCL 10 MG TAB PO SCH (08:27)
[2017-04-06] MEDS: carBAMazepine 200 MG TAB PO SCH (08:27)
[2017-04-06] MEDS: SODIUM CHLORIDE 0.9% FLUSH 10 ML FLUSH IV FLUSH SCH (08:28)
[2017-04-06] MEDS: DOCUSATE SODIUM 50 MG/SENNA 8.6 MG TAB PO SCH (08:28)
[2017-04-06 09:00] VITALS: BP 114/58; PULSE 88; RESP 21; TEMP 98.1; O2SAT 96
--- NOTE | 2017-04-06 09:18 | HHI.PR ---
Subjective Remarks Follow-up for mental retardation and agitation. The patient is sitting up being fed breakfast by BUSINESS RISK ANALYST. The patient smiles when greeted. He is out of restraints. He did not require anymore Haldol overnight. Objective Vitals Vital Signs Date Time Temp Pulse Resp B/P (MAP) Pulse Ox O2 Delivery O2 Flow Rate FiO2 04/06/17 09:00 98.1 88 21 114/58 (76) 96 04/05/17 23:12 98.0 89 18 124/70 (88) 98 04/05/17 19:52 98.1 90 18 128/75 (92) 97 04/05/17 16:09 96.8 93 20 120/80 (93) 98 I/O 04/05/17 04/05/17 04/05/17 04/06/17 04/06/17 04/06/17 07:00 15:00 23:00 07:00 15:00 23:00 Intake Total 60 ml 1500 ml Balance 60 ml 1500 ml Intake Oral 60 ml 1500 ml Result Diagram: 04/05/17 1530 04/05/17 1530 Objective Remarks GENERAL: Well-developed well-nourished. No acute distress. SKIN: Warm and dry. No lesions noted. CARDIOVASCULAR: Regular rate and rhythm. No murmur appreciated. RESPIRATORY: No accessory muscle use. Clear to auscultation. Breath sounds equal bilaterally. MUSCULOSKELETAL: No obvious deformities. No edema. NEUROLOGICAL: Awake and alert. Moves upper and lower extremities spontaneously. Nonverbal. PSYCHIATRIC: Delayed mood and affect; insight and judgment poor. A/P Problem List: (1) Intermittent explosive disorder ICD Code: F63.81 - Intermittent explosive disorder Status: Acute (2) Mentally disabled ICD Code: F79 - Unspecified intellectual disabilities Status: Chronic Assessment and Plan 26-year-old male with PMH of Cerebral Palsy, Mental Retardation and Developmental Delay who was brought to the ER by Police under [facility] secondary to aggressive behavior. Initially admitted to [facility], s/p eval by Psych, determined to have Intermittent Explosive Behavior and Russell Act lifted. [facility] not [facility] pt secondary to violent behavior. Intermittent Explosive Disorder: [facility] to [facility] from [facility] under [facility] Act for violent/aggressive behavior, s/p eval by Pscyhiatry, Russell Act lifted as pt w/ mental retardation. It seems patient was having home antipsychotics down titrated as outpatient. Discussed with psychiatry, Dr. Disla, appreciate assistance with adjusting antipsychotics. It appears Risperdal was down titrated as outpatient, psychiatry increased it to 3 mg twice daily for now and may continue to titrate this. Also continue carbamazepine, BuSpar, trazodone. Haldol and restraints if needed. Mentally Disabled: h/o Cerebral Palsy w/ Developmental Delay, at baseline. Continue home medications. Total Self Care Deficit: unable to care for self secondary to the above, [facility], however home will not accept pt back in light of aggressive behavior. Case Management consulted for assistance with safe discharge planning. DVT Prophylaxis: SCD/Teds. Discharge Planning The patient is medically stable of this time. Addendum 1300: The patient became agitated again today requiring Haldol and restraints. Discussed with psychiatry, Dr. Choe, recommended inpatient psychiatry for management of patient's behaviors. Discussed with my attending Dr. Almendarez and psychiatry Dr. Disla, who agree the patient needs to be Russell acted for further psychiatric treatment with his continued uncontrolled intermittent explosive disorder. The patient was Russell acted and will be discharged to inpatient psychiatry. Andres Alcaraz Apr 06, 2017 09:18
[2017-04-06] MEDS ORDERED: LORazepam 1 MG TAB PO PRN (10:45)
--- NOTE | 2017-04-06 12:31 | HHI.PYPN ---
Subjective Remarks Patient seen and examined on psychiatric follow-up. Chart reviewed. Dr. Castro' s and Dr. Disla consultation and follow-up reviewed. Case discussed with RN who reports that the patient has been increasingly agitated, trying to running away from the ER, had to be permanently restrained. He received Haldol 2 mg PRN but was subsequently unsteady and had to be placed into soft wrist restraints. On psychiatric evaluation patient is restless, moving back and forward his head. He is non-verbal and minimally engageable in a conversation. He does not follow simple verbal commands. Affect is childlike but generally euthymic. No evident side effects from medications. No complaints of pain, when asked. Collateral information from outpatient prescriber: Delphine Valentine: She gently provide her important information of outpatient care. She says that she has been seeing the patient for about a year now. Patient has been stable on carbamazepine 200 mg 3 times a day, BuSpar 20 mg 3 times a day, Risperdal 3 mg daily. Was not aware that the medication were titrated down, but she clarifies that there is a nurse practitioner who works in the residential facility where the patient lives that could do it. Chief Complaint: Med management Mental Status Examination Appearance: Disheveled Consciousness: Alert Orientation: Person (seems to recognize name) Speech: Other (non-verbal) Language: Other (N/A) Fund of Knowledge: Poor (suspect poor) Attention and Concentration: Inadequate Memory: Impaired Mood: Other (unable to assess) Affect: Euthymic, Other (childlike) Thought Process & Associations: Other (unable to assess) Thought Content: Other (unable to assess) Hallucination Type: None (does not appear int stim) Delusion Type: None (unable to assess) Suicidal Ideation: No Suicidal Plan: No Suicidal Intention: No Homicidal Ideation: No Homicidal Plan: No Homicidal Intention: No Insight: Poor Judgment: Poor Results Labs Test 04/05/17 12:50 04/05/17 15:30 04/06/17 08:40 Urine Color LIGHT-YELLOW Urine Turbidity CLEAR Urine pH 6.5 Urine Specific Ripton 1.006 Urine Protein NEG mg/dL Urine Glucose (UA) NEG mg/dL Urine Ketones NEG mg/dL Urine Occult Blood NEG Urine Nitrite NEG Urine Bilirubin NEG Urine Urobilinogen LESS THAN 2.0 MG/DL Urine Leukocyte Esterase NEG Urine RBC 1 /hpf Urine WBC 1 /hpf Urine Bacteria RARE /hpf Microscopic Urinalysis Comment CULT NOT INDICATED White Blood Count 8.8 TH/MM3 Red Blood Count 4.63 MIL/MM3 Hemoglobin 14.7 GM/DL Hematocrit 42.9 % Mean Corpuscular Volume 92.7 FL Mean Corpuscular Hemoglobin 31.8 PG Mean Corpuscular Hemoglobin Concent 34.2 % Red Cell Distribution Width 12.4 % Platelet Count 213 TH/MM3 Mean Platelet Volume 9.4 FL Neutrophils (%) (Auto) 66.0 % Lymphocytes (%) (Auto) 23.1 % Monocytes (%) (Auto) 7.2 % Eosinophils (%) (Auto) 3.4 % Basophils (%) (Auto) 0.3 % Neutrophils # (Auto) 5.8 TH/MM3 Lymphocytes # (Auto) 2.0 TH/MM3 Monocytes # (Auto) 0.6 TH/MM3 Eosinophils # (Auto) 0.3 TH/MM3 Basophils # (Auto) 0.0 TH/MM3 CBC Comment DIFF FINAL Differential Comment Blood Urea Nitrogen 10 MG/DL Creatinine 0.77 MG/DL Random Glucose 108 MG/DL Total Protein 7.7 GM/DL Albumin 3.6 GM/DL Calcium Level 9.0 MG/DL Alkaline Phosphatase 109 U/L Aspartate Amino Transf (AST/SGOT) 21 U/L Alanine Aminotransferase (ALT/SGPT) 27 U/L Total Bilirubin 0.2 MG/DL Sodium Level 137 MEQ/L Potassium Level 3.7 MEQ/L Chloride Level 102 MEQ/L Carbon Dioxide Level 28.1 MEQ/L Anion Gap 7 MEQ/L Estimat Glomerular Filtration Rate 121 ML/MIN Carbamazepine (Tegretol) Level 10.5 MCG/ML Vitals/IOs Vital Signs Date Time Temp Pulse Resp B/P (MAP) Pulse Ox O2 Delivery O2 Flow Rate FiO2 04/06/17 09:00 98.1 88 21 114/58 (45) 96 Assessment & Plan Problem List: (1) Intermittent explosive disorder ICD Codes: F63.81 - Intermittent explosive disorder Status: Acute Assessment & Plan: She continues to be difficult to handle in the hospital, agitated, restless. As a conversation with primary care provider, will increase current psychotropic regimen outpatient doses. Risperdal 3 mg twice a day, carbamazepine 200 mg twice a day, BuSpar 20 mg 3 times a day. Will order carbamazepine levels. Will discontinue clonazepam and Ativan to avoid paradoxical agitation. Will increase Haldol to 5 mg every 8 hours when necessary aggressive behavior and agitation. Patient is for psychiatric admission. (2) Intellectual disability ICD Codes: F79 - Unspecified intellectual disabilities Assessment & Plan Estimated LOS: days Justification for Cont. Inpt. After discussion with outpatient health care provider, primary medical team, nurse in charge, agree with psychiatric admission for stabilization before discharging back to residential facility. Request HC Surrog/Guard Advoc?: No Donovan Choe MD Apr 06, 2017 12:31
[2017-04-06] MEDS ORDERED: carBAMazepine 200 MG TAB PO SCH (13:00)
[2017-04-06] MEDS ORDERED: CARB200T PO (13:11)
[2017-04-06] MEDS ORDERED: RISPM3 PO (13:11)
[2017-04-06] MEDS ORDERED: HALOPERIDOL LACTATE 5 MG/ML AMP IM PRN (15:30)
== END 2017-04-06 17:30 ==
LOC: NEPJ 16:57 → NEDA 21:02 → NEPGCP 22:31
PROVIDERS: ADMIT Hospitalist; ATTEND Hospitalist
DX: F63.81 Intermittent explosive disorder (principal); G80.9 Cerebral palsy, unspecified; F79 Unspecified intellectual disabilities; R45.1 Restlessness and agitation; Z78.1 Physical restraint status; Z79.899 Other long term (current) drug therapy
CPT/HCPCS: 80053; 80156; 81001; 85025; 93005; 96372; G0378; J1630; J2060

== ENCOUNTER 2017-04-06 18:12 | Inpatient (IN) | payer OTHER, MEDICARE ==
[~2017-04-06] VITALS: Ht 157.5 cm; Wt 77.5 kg
[2017-04-06 17:30] VITALS: BP 124/80; PULSE 82; RESP 18; TEMP 98.6; O2SAT 97
[~2017-04-06 18:12] MED LIST changes: -CLON1 PO; +HYOS0.128 PO; +RISP1 PO; +RISP2TAB2 PO; -RISP4TAB2 PO; +RISPM3 PO; -TRAZ100T6 PO; +TRAZ1TAB45 PO
[2017-04-06] MEDS ORDERED: ACETAMINOPHEN 325 MG TAB PO PRN (20:00)
[2017-04-06] MEDS ORDERED: MAGNESIUM HYDROXIDE SUSP 30 ML CUP PO PRN (20:00)
[2017-04-06] MEDS ORDERED: ALUMINUM/MAGNESIUM/SIMETH 30 ML CUP PO PRN (20:00)
[2017-04-06] MEDS ORDERED: PILL SPLITTER OTHER PRN (20:15)
[2017-04-06] MEDS: risperiDONE 3 MG TAB PO SCH (21:00)
[2017-04-06] MEDS: carBAMazepine 200 MG TAB PO SCH (21:00)
[2017-04-06] MEDS: HYOSCYAMINE 0.125 MG TAB PO SCH (21:00)
[2017-04-06] MEDS: traZODone HCL 100 MG TAB PO SCH (21:00)
[2017-04-07 06:11] VITALS: BP 145/71; PULSE 94; RESP 18; TEMP 98; O2SAT 98
[2017-04-07] MEDS: carBAMazepine 200 MG TAB PO SCH ×3 (08:24→20:06)
[2017-04-07] MEDS: busPIRone HCL 10 MG TAB PO SCH ×3 (08:24→17:41)
[2017-04-07] MEDS: risperiDONE 3 MG TAB PO SCH ×2 (08:24→20:06)
[2017-04-07] MEDS: HYOSCYAMINE 0.125 MG TAB PO SCH ×2 (08:26→20:06)
[2017-04-07] MEDS: HALOPERIDOL LACTATE 5 MG/ML AMP IM PRN (10:45)
--- NOTE | 2017-04-07 10:53 | HHI.HP ---
Provisional Diagnosis Admission Date Apr 06, 2017 at 18:12 [place] I. Moderate to severe intellectual disability, intermittent explosive disorder Certification of Person's Competence To Provide Express and Informed Consent I have personally examined Joesph Moffett , a person being served at [facility] on, Apr 07, 2017 10:43. Express and informed consent means consent voluntarily given in writing, by a competent person, after sufficient explanation and disclosure of the subject matter involved to enable the person to make a knowing and willful decision without any element of force, fraud, deceit, duress, or other form of constraint or coercion. This person is 18 years of age or older, is not now known to be incompetent to consent to treatment with a guardian advocate, and does not have a health care surrogate or proxy currently making medical treatment decisions. I have found this person to be one of the following: [] Competent to provide express and informed consent, as defined above, for voluntary admission to this facility and is competent to provide express and informed consent for treatment. He/she has the consistent capacity to make well reasoned, willful, and knowing decisions concerning his or her medical or mental health treatment. The person fully and consistently understands the purpose of the admission for examination/placement and is fully capable of personally exercising all rights assured under [place] [x] Incompetent to provide express and informed consent to voluntary admission, and this is incompetent to provide express and informed consent to treatment. The person must be transferred to involuntary status and a petition for a guardian advocate filed with the Circuit Court. [] Refusing to provide express and informed consent to voluntary admission but is competent to provide express and informed consent for treatment. The person must be discharged or transferred to involuntary status. Form shall be completed within 24 hours of a person's arrival at the receiving facility and filed in the clinical record of each person: 1. Admitted on a voluntary basis 2. Permitted to provide express and informed consent to his/her own treatment 3. Allowed to transfer from involuntary to voluntary status 4. Prior to permitting a person to consent to his or her own treatment after having been previously found incompetent to consent to treatment. History of Present Illness Capacity: Lacks Capacity HPI History of Present Illness: 04/04/[address] Castro: 26-year-old male with history of developmental disability, well known to this physician and the emergency department staff, brought in under a Russell act for [facility] behavior at his [facility]. According to the Russell act, Joesph "for up" his [facility] and needs his medications fixed.At the present time, the patient is calm and cooperative. He is cognitively limited but this is his baseline. He has not answering questions with this physician. He is sitting with his mouth open, watching what goes around him. Patient's developmental disability is considered significant in that he is a poor historian and unable to provide any significant information regarding his condition or what happened prior to his Russell act today. However, the patient is not engaging in any aggressive manner towards himself or anyone else at this point. Therefore, this physician does not have reason to "medicate" him. In fact, the patient can be treated as an outpatient if medication adjustments are necessary. This physician is aware of the Russell act laws are not supposed to be utilized for individuals with a developmental disability. 04/05/2017 Dr. Disla : Patient seen and examined. Chart reviewed. Dr. Castro's consultation reviewed. Case discussed with RN who reports that patient was grabbing at items this morning. He received Haldol PRN but was subsequently unsteady and had to be placed into soft wrist restraints. On my exam, patient is presently calm. He is non-verbal. He remains in soft wrist restraints. He is sleeping but easily aroused. Once awakened, he begins rocking in his bed. He does not follow simple commands. Affect is childlike but generally euthymic. No evident side effects from medications. No complaints of pain, when asked.MAR from [facility] reviewed. I note patient has been undergoing recent tapers of several of his psychotropics. In particular, it appears that Klonopin was tapered from 1.5mg BID to 0.5mg TID on 03/31. Risperdal was also tapered from 6mg BID to ?2mg BID (MAR is unclear) around the same time. There was also a planned taper of CBS. His trazodone 150mg qHS and BuSpar 10mg BID appear to have been continued unchanged.I tried to reach out to patient's outpatient prescriber, Delphine Valentine. I left VM with Ms. Valentine's nurse requesting a call back to discuss rationale for recent med changes. 04/06/2017 by me: Patient seen and examined on psychiatric follow-up. Chart reviewed. Dr. Castro's and Dr. Disla consultation and follow-up reviewed. Case discussed with RN who reports that the patient has been increasingly agitated, trying to running away from the ER, had to be permanently restrained. He received Haldol 2 mg PRN but was subsequently unsteady and had to be placed into soft wrist restraints. On psychiatric evaluation patient is restless, moving back and forward his head. He is non-verbal and minimally engageable in a conversation. He does not follow simple verbal commands. Affect is childlike but generally euthymic. No evident side effects from medications. No complaints of pain, when asked. Collateral information from outpatient prescriber: Delphine Valentine: She gently provide her important information of outpatient care. She says that she has been seeing the patient for about a year now. Patient has been stable on carbamazepine 200 mg 3 times a day, BuSpar 20 mg 3 times a day, Risperdal 3 mg daily. Was not aware that the medication were titrated down, but she clarifies that there is a nurse practitioner who works in the residential facility where the patient lives that could do. 04/07/2017 on psychiatric evaluation today patient is found running in the mason , playful, cheerful. He says that he feels happy, but he is minimally verbal and non-cooperative with the evaluation. As per nurses, patient has been mostly playing in the unit, he has been happy camper. He is restless, but no agitated, no violent or aggressive. Patient is compliant with medications, no significant side effects reported at this moment. I have discussed the case with social media manager to start to coordinate this event. Review of Systems Other No somatic complaint Past Family Social History Coded Allergies: No Allergy Information Available (Verified Allergy, Unknown, 03/14/17) [phone] - patient has NKA but she clarified that she has not had him as a client for that long. Unable to Assess (Verified Allergy, Unknown, 03/11/17) Active Scripts Risperidone Odt (Risperdal M-Tab) 3 Mg Tab, 3 MG PO Q12HR for Psychosis, #30 TAB Prov:Andres Alcaraz 04/06/17 Carbamazepine (Carbamazepine) 200 Mg Tab, 200 MG PO TID for Psychosis, #30 TAB Prov:KieranAndres BROWN 04/06/17 Reported Medications Hyoscyamine (Hyoscyamine) 0.125 Mg Tab, 0.125 MG PO BID for Gastrointestinal disorders, TAB 0 Refills 04/04/17 Trazodone (Trazodone) 150 Mg Tablet, 150 MG PO HS for Control Depression, #30 TAB 0 Refills 04/04/17 Polyethylene Glycol 3350 Powder (Polyethylene Glycol 3350 Powder) 17 Gram Pow, 17 GM PO DAILY for Constipation, #1 BOTTLE 0 Refills 03/11/17 Atorvastatin (Atorvastatin) 10 Mg Tab, 10 MG PO HS for Cholesterol Management, # 30 TAB 0 Refills 03/11/17 Buspirone (Buspirone) 10 Mg Tab, 10 MG PO BID for Anxiety, TAB 0 Refills 03/11/17 Docusate Sodium (Docusate Sodium) 100 Mg Cap, 50 MG PO BID for Prevent Constipation, #60 CAP 0 Refills 03/11/17 Discontinued Reported Medications Clonazepam (Clonazepam) 0.5 Mg Tab, 0.5 MG PO BID, #60 TAB 0 Refills 04/05/17 Risperidone (Risperdal) 1 Mg Tab, 1 MG PO DAILY, #30 TAB 0 Refills 04/04/17 Risperidone (Risperidone) 2 Mg Tab, 2 MG PO Q12HR, #60 TAB 0 Refills 04/04/17 Carbamazepine (Carbamazepine) 200 Mg Tab, 150 MG PO DAILY, #60 TAB 0 Refills START ON 11/09/16 04/04/17 Carbamazepine (Carbamazepine) 200 Mg Tab, 150 MG PO BID, #60 TAB 0 Refills START ON 11/04/16 04/04/17 Carbamazepine (Carbamazepine) 200 Mg Tab, 300 MG PO BID for 1 Day, #3 TAB 0 Refills 04/04/17 Clonazepam (Clonazepam) 0.5 Mg Tab, 0.5 MG PO BID, #60 TAB 0 Refills 03/11/17 Trazodone (Trazodone) 100 Mg Tablet, 100 MG PO HS for Control Depression, #30 TAB 0 Refills 03/11/17 Carbamazepine (Carbamazepine) 200 Mg Tab, 200 MG PO TID, #60 TAB 0 Refills 03/11/17 Risperidone (Risperidone) 4 Mg Tab, 4 MG PO Q12HR, #60 TAB 0 Refills 03/11/17 Discontinued Scripts Clonazepam (Klonopin) 1 Mg Tab, 1 MG PO BID, #60 TAB 0 Refills Prov:Guero William MD 03/14/17 Current Medications Medications (Trade) Dose Ordered Sig/Ajay Route Start Time Stop Time Status Last Admin (Tylenol) 650 mg Q4H PRN PO 04/06/17 20:00 (Milk Of Magnesia Liq) 30 ml DAILY PRN PO 04/06/17 20:00 (Mag-Al Plus Susp Liq) 30 ml Q6H PRN PO 04/06/17 20:00 (risperDAL) 3 mg Q12HR PO 04/06/17 21:00 04/07/17 08:24 (Buspar) 20 mg TID PO 04/07/17 09:00 04/07/17 08:24 (Desyrel) 150 mg HS PO 04/06/17 21:00 04/06/17 21:00 (Levsin) 0.125 mg BID PO 04/06/17 21:00 04/07/17 08:26 (Haldol Inj) 5 mg Q8HR PRN IM 04/06/17 20:00 Future hold (Pill Splitter) 1 ea UNSCH PRN OTHER 04/06/17 20:15 (TEGretol) 200 mg Q8HR PO 04/07/17 14:00 Physical Exam Vital Signs Vital Signs Date Time Temp Pulse Resp B/P (MAP) Pulse Ox O2 Delivery O2 Flow Rate FiO2 04/07/17 06:11 98.0 94 18 145/71 (95) 98 Mental Status Examination Appearance: Disheveled Consciousness: Alert Orientation: Person Motor Activity: Normal gait Speech: Hesitant, Incoherent Language: Other (limited) Fund of Knowledge: Poor Attention and Concentration: Adequate Memory: Impaired Mood: Good Affect: Appropriate Thought Process & Associations: Loose associations Thought Content: Bizarre thinking Hallucination Type: None Delusion Type: None Suicidal Ideation: No Suicidal Plan: No Suicidal Intention: No Homicidal Ideation: No Homicidal Plan: No Homicidal Intention: No Insight: Adequate Judgment: Adequate Assessment & Plan Problem List: (1) Intermittent explosive disorder ICD Codes: F63.81 - Intermittent explosive disorder Status: Acute Assessment & Plan: Patient seen today for evaluation, particularly that yesterday, today patient is more calm and cooperative, a little bit agitated and restless. As a conversation with primary care provider, will increase current psychotropic regimen outpatient doses. Risperdal 3 mg twice a day, carbamazepine 200 mg twice a day, BuSpar 20 mg 3 times a day. Will order carbamazepine levels. Will discontinue clonazepam and Ativan to avoid paradoxical agitation. Will increase Haldol to 5 mg every 8 hours when necessary aggressive behavior and agitation. Patient is for psychiatric admission. conservation worker intervention to start to coordinating a safe discharge planning. Assessment & Plan Estimated LOS: days Donovan Choe MD Apr 07, 2017 10:53
[2017-04-07 11:43] LABS: ANION GAP 9 MEQ/L (5-15); BICARBONATE 26.1 MEQ/L (21.0-32.0); BLOOD UREA NITROGEN 14 MG/DL (7-18); CHLORIDE 103 MEQ/L (98-107); GLOMERULAR FILTRATION RATE 121 ML/MIN (>89); POTASSIUM 3.4 MEQ/L (3.5-5.1); SODIUM (NA) 138 MEQ/L (136-145)
[2017-04-07 11:54] LABS: HDL CHOLESTEROL 42.9 MG/DL (40.0-60.0); LDL CHOLESTEROL 100 MG/DL (0-99)
[2017-04-07 11:55] LABS: AUTOMATED NEUTROPHIL # 5.4 TH/MM3 (1.8-7.7); BASOPHIL % 0.3 % (0.0-2.0); EOSINOPHIL # 0.1 TH/MM3 (0-0.4); EOSINOPHIL % 1.5 % (0.0-4.0); HEMATOCRIT 42.5 % (39.0-51.0); HEMO FLAGS DIFF FINAL; LYMPH % 26.4 % (9.0-44.0); LYMPHOCYTE # 2.2 TH/MM3 (1.0-4.8); MEAN CORPUSCULAR HEMOGLOBIN 31.4 PG (27.0-34.0); MEAN CORPUSCULAR HGB CONC 33.8 % (32.0-36.0); MONO % 8.3 % (0.0-8.0); NEUT % 63.5 % (16.0-70.0); PLATELET COUNT 242 TH/MM3 (150-450); RED BLOOD COUNT 4.57 MIL/MM3 (4.50-5.90); RED CELL DISTRIBUTION WIDTH 12.5 % (11.6-17.2); WHITE BLOOD COUNT 8.5 TH/MM3 (4.0-11.0)
[2017-04-07 14:48] LABS: HEMOGLOBIN A1a 1.4 %; HEMOGLOBIN A1b 0.9 %; HEMOGLOBIN Ao 85.4 %; HEMOGLOBIN F 0.8 %; HEMOGLOBIN LA1C 1.9 %; HEMOGLOBIN P3 3.8 %
--- NOTE | 2017-04-07 15:34 | PD.PSY.CON ---
Provisional Diagnosis Admission Date Apr 06, 2017 at 18:12 [place] I. Moderate to severe intellectual disability, intermittent explosive disorder History of Present Illness Service Psychiatry Consult Requested By Dr. Paulson Reason for Consult Second opinion petition supporting Russell act Primary Care Physician Unknown HPI History of Present Illness: 04/04/[address] Castro: 26-year-old male with history of developmental disability, well known to this physician and the emergency department staff, brought in under a Russell act for aggressive behavior at his [facility]. According to the Russell act, Joesph "for up" his [facility] and needs his medications fixed.At the present time, the patient is calm and cooperative. He is cognitively limited but this is his baseline. He has not answering questions with this physician. He is sitting with his mouth open, watching what goes around him. Patient's developmental disability is considered significant in that he is a poor historian and unable to provide any significant information regarding his condition or what happened prior to his Russell act today. However, the patient is not engaging in any aggressive manner towards himself or anyone else at this point. Therefore, this physician does not have reason to "medicate" him. In fact, the patient can be treated as an outpatient if medication adjustments are necessary. This physician is aware of the Russell act laws are not supposed to be utilized for individuals with a developmental disability. 04/05/2017 Dr. Disla : Patient seen and examined. Chart reviewed. Dr. Castro's consultation reviewed. Case discussed with RN who reports that patient was grabbing at items this morning. He received Haldol PRN but was subsequently unsteady and had to be placed into soft wrist restraints. On my exam, patient is presently calm. He is non-verbal. He remains in soft wrist restraints. He is sleeping but easily aroused. Once awakened, he begins rocking in his bed. He does not follow simple commands. Affect is childlike but generally euthymic. No evident side effects from medications. No complaints of pain, when asked.MAR from [facility] reviewed. I note patient has been undergoing recent tapers of several of his psychotropics. In particular, it appears that Klonopin was tapered from 1.5mg BID to 0.5mg TID on 03/31. Risperdal was also tapered from 6mg BID to ?2mg BID (MAR is unclear) around the same time. There was also a planned taper of CBS. His trazodone 150mg qHS and BuSpar 10mg BID appear to have been continued unchanged.I tried to reach out to patient's outpatient prescriber, Delphine Valentine. I left VM with Ms. Valentine's nurse requesting a call back to discuss rationale for recent med changes. 04/06/2017 by me: Patient seen and examined on psychiatric follow-up. Chart reviewed. Dr. Castro's and Dr. Disla consultation and follow-up reviewed. Case discussed with RN who reports that the patient has been increasingly agitated, trying to running away from the ER, had to be permanently restrained. He received Haldol 2 mg PRN but was subsequently unsteady and had to be placed into soft wrist restraints. On psychiatric evaluation patient is restless, moving back and forward his head. He is non-verbal and minimally engageable in a conversation. He does not follow simple verbal commands. Affect is childlike but generally euthymic. No evident side effects from medications. No complaints of pain, when asked. Collateral information from outpatient prescriber: Delphine Valentine: She gently provide her important information of outpatient care. She says that she has been seeing the patient for about a year now. Patient has been stable on carbamazepine 200 mg 3 times a day, BuSpar 20 mg 3 times a day, Risperdal 3 mg daily. Was not aware that the medication were titrated down, but she clarifies that there is a nurse practitioner who works in the residential facility where the patient lives that could do. 04/07/2017 on psychiatric evaluation today patient is found running in the mason , playful, cheerful. He says that he feels happy, but he is minimally verbal and non-cooperative with the evaluation. As per nurses, patient has been mostly playing in the unit, he has been happy camper. He is restless, but no agitated, no violent or aggressive. Patient is compliant with medications, no significant side effects reported at this moment. I have discussed the case with social worker health services to start to coordinate this event. 04/07/17 Above note dictated by Dr. Paulson reviewed and agreed with. Dr. Paulson has sign first opinion petition supporting Russell act. Patient seen by me on unit patient remains quite childlike riding relative unit in a playful manner. Though there is an irritability also noted. I agree with Dr. Paulson patient does meet criteria for involuntary psychiatric hospitalization the Russell act thus will cosign second opinion petition supporting [facility] Past Family Social History Coded Allergies: No Allergy Information Available (Verified Allergy, Unknown, 03/14/17) Per - [facility]" [facility] [place] [phone] - patient has NKA but she clarified that she has not had him as a client for that long. Unable to Assess (Verified Allergy, Unknown, 03/11/17) Active Scripts Risperidone Odt (Risperdal M-Tab) 3 Mg Tab, 3 MG PO Q12HR for Psychosis, #30 TAB Prov:Andres Alcaraz 04/06/17 Carbamazepine (Carbamazepine) 200 Mg Tab, 200 MG PO TID for Psychosis, #30 TAB Prov:Andres Alcaraz 04/06/17 Reported Medications Hyoscyamine (Hyoscyamine) 0.125 Mg Tab, 0.125 MG PO BID for Gastrointestinal disorders, TAB 0 Refills 04/04/17 Trazodone (Trazodone) 150 Mg Tablet, 150 MG PO HS for Control Depression, #30 TAB 0 Refills 04/04/17 Polyethylene Glycol 3350 Powder (Polyethylene Glycol 3350 Powder) 17 Gram Pow, 17 GM PO DAILY for Constipation, #1 BOTTLE 0 Refills 03/11/17 Atorvastatin (Atorvastatin) 10 Mg Tab, 10 MG PO HS for Cholesterol Management, # 30 TAB 0 Refills 03/11/17 Buspirone (Buspirone) 10 Mg Tab, 10 MG PO BID for Anxiety, TAB 0 Refills 03/11/17 Docusate Sodium (Docusate Sodium) 100 Mg Cap, 50 MG PO BID for Prevent Constipation, #60 CAP 0 Refills 03/11/17 Discontinued Reported Medications Clonazepam (Clonazepam) 0.5 Mg Tab, 0.5 MG PO BID, #60 TAB 0 Refills 04/05/17 Risperidone (Risperdal) 1 Mg Tab, 1 MG PO DAILY, #30 TAB 0 Refills 04/04/17 Risperidone (Risperidone) 2 Mg Tab, 2 MG PO Q12HR, #60 TAB 0 Refills 04/04/17 Carbamazepine (Carbamazepine) 200 Mg Tab, 150 MG PO DAILY, #60 TAB 0 Refills START ON 11/09/16 04/04/17 Carbamazepine (Carbamazepine) 200 Mg Tab, 150 MG PO BID, #60 TAB 0 Refills START ON 11/04/16 04/04/17 Carbamazepine (Carbamazepine) 200 Mg Tab, 300 MG PO BID for 1 Day, #3 TAB 0 Refills 04/04/17 Clonazepam (Clonazepam) 0.5 Mg Tab, 0.5 MG PO BID, #60 TAB 0 Refills 03/11/17 Trazodone (Trazodone) 100 Mg Tablet, 100 MG PO HS for Control Depression, #30 TAB 0 Refills 03/11/17 Carbamazepine (Carbamazepine) 200 Mg Tab, 200 MG PO TID, #60 TAB 0 Refills 03/11/17 Risperidone (Risperidone) 4 Mg Tab, 4 MG PO Q12HR, #60 TAB 0 Refills 03/11/17 Discontinued Scripts Clonazepam (Klonopin) 1 Mg Tab, 1 MG PO BID, #60 TAB 0 Refills Prov:Guero William MD 03/14/17 Current Medications Medications (Trade) Dose Ordered Sig/Ajay Route Start Time Stop Time Status Last Admin (Tylenol) 650 mg Q4H PRN PO 04/06/17 20:00 (Milk Of Magnesia Liq) 30 ml DAILY PRN PO 04/06/17 20:00 (Mag-Al Plus Susp Liq) 30 ml Q6H PRN PO 04/06/17 20:00 (risperDAL) 3 mg Q12HR PO 04/06/17 21:00 04/07/17 08:24 (Buspar) 20 mg TID PO 04/07/17 09:00 04/07/17 13:44 (Desyrel) 150 mg HS PO 04/06/17 21:00 04/06/17 21:00 (Levsin) 0.125 mg BID PO 04/06/17 21:00 04/07/17 08:26 (Haldol Inj) 5 mg Q8HR PRN IM 04/06/17 20:00 Future hold 04/07/17 10:45 (Pill Splitter) 1 ea UNSCH PRN OTHER 04/06/17 20:15 (TEGretol) 200 mg Q8HR PO 04/07/17 14:00 04/07/17 13:45 Physical Exam Vital Signs Vital Signs Date Time Temp Pulse Resp B/P (MAP) Pulse Ox O2 Delivery O2 Flow Rate FiO2 04/07/17 06:11 98.0 94 18 145/71 (95) 98 Lab Results Test 04/07/17 10:25 White Blood Count 8.5 TH/MM3 Red Blood Count 4.57 MIL/MM3 Hemoglobin 14.4 GM/DL Hematocrit 42.5 % Mean Corpuscular Volume 93.0 FL Mean Corpuscular Hemoglobin 31.4 PG Mean Corpuscular Hemoglobin Concent 33.8 % Red Cell Distribution Width 12.5 % Platelet Count 242 TH/MM3 Mean Platelet Volume 9.2 FL Neutrophils (%) (Auto) 63.5 % Lymphocytes (%) (Auto) 26.4 % Monocytes (%) (Auto) 8.3 % Eosinophils (%) (Auto) 1.5 % Basophils (%) (Auto) 0.3 % Neutrophils # (Auto) 5.4 TH/MM3 Lymphocytes # (Auto) 2.2 TH/MM3 Monocytes # (Auto) 0.7 TH/MM3 Eosinophils # (Auto) 0.1 TH/MM3 Basophils # (Auto) 0.0 TH/MM3 CBC Comment DIFF FINAL Differential Comment Blood Urea Nitrogen 14 MG/DL Creatinine 0.77 MG/DL Random Glucose 96 MG/DL Calcium Level 9.2 MG/DL Sodium Level 138 MEQ/L Potassium Level 3.4 MEQ/L Chloride Level 103 MEQ/L Carbon Dioxide Level 26.1 MEQ/L Anion Gap 9 MEQ/L Estimat Glomerular Filtration Rate 121 ML/MIN Triglycerides Level 163 MG/DL Cholesterol Level 175 MG/DL LDL Cholesterol 100 MG/DL HDL Cholesterol 42.9 MG/DL Cholesterol/HDL Ratio 4.07 RATIO Thyroid Stimulating Hormone 3rd Gen 0.996 uIU/ML Mental Status Examination Appearance: Disheveled Consciousness: Alert Orientation: Person Motor Activity: Normal gait Speech: Hesitant, Incoherent Language: Other (limited) Fund of Knowledge: Poor Attention and Concentration: Adequate Memory: Impaired Mood: Good Affect: Appropriate Thought Process & Associations: Loose associations Thought Content: Bizarre thinking Hallucination Type: None Delusion Type: None Suicidal Ideation: No Suicidal Plan: No Suicidal Intention: No Homicidal Ideation: No Homicidal Plan: No Homicidal Intention: No Insight: Adequate Judgment: Adequate Assessment & Plan Problem List: (1) Intermittent explosive disorder ICD Codes: F63.81 - Intermittent explosive disorder Status: Acute Assessment & Plan Estimated LOS: days Robi Saldaña MD Apr 07, 2017 15:34
[2017-04-07 16:00] VITALS: BP 110/64; PULSE 74; RESP 18; O2SAT 97
[2017-04-07] MEDS: traZODone HCL 100 MG TAB PO SCH (20:06)
[2017-04-08] MEDS: carBAMazepine 200 MG TAB PO SCH (05:36)
[2017-04-08 06:06] VITALS: BP 162/90; PULSE 98; RESP 18; TEMP 97.5; O2SAT 98
[2017-04-08] MEDS: busPIRone HCL 10 MG TAB PO SCH ×3 (08:22→17:29)
[2017-04-08] MEDS: risperiDONE 3 MG TAB PO SCH ×2 (08:22→21:16)
[2017-04-08] MEDS: HYOSCYAMINE 0.125 MG TAB PO SCH ×2 (08:22→21:16)
[2017-04-08] MEDS: HALOPERIDOL LACTATE 5 MG/ML AMP IM PRN (08:23)
--- NOTE | 2017-04-08 09:44 | HHI.PYPN ---
Subjective Remarks Patient seen today for psychiatric reevaluation, case was widely discussed with social media intern Malena and nurse in charge Lacy. Patient has been agitated on and off, walking constantly in the unit, at times difficult to redirect, but not aggressive or violent. The problem is that the patient constantly violate other patient spaces. However, during my evaluation patient is calmly eating his breakfast, nonverbal, minimally engageable in a conversation, very childish. She has been compliant with medications, I wonder if constant pacing in the unit could be due to akathisia related with high doses of Risperdal. Review of Systems Except as stated in HPI: all other systems reviewed are Neg Mental Status Examination Appearance: Disheveled Consciousness: Alert Orientation: Person Motor Activity: Normal gait Speech: Hesitant, Incoherent Language: Other (limited) Fund of Knowledge: Poor Attention and Concentration: Adequate Memory: Impaired Mood: Good Affect: Appropriate Thought Process & Associations: Loose associations Thought Content: Bizarre thinking Hallucination Type: None Delusion Type: None Suicidal Ideation: No Suicidal Plan: No Suicidal Intention: No Homicidal Ideation: No Homicidal Plan: No Homicidal Intention: No Insight: Adequate Judgment: Adequate Results Labs Test 04/07/17 10:25 White Blood Count 8.5 TH/MM3 Red Blood Count 4.57 MIL/MM3 Hemoglobin 14.4 GM/DL Hematocrit 42.5 % Mean Corpuscular Volume 93.0 FL Mean Corpuscular Hemoglobin 31.4 PG Mean Corpuscular Hemoglobin Concent 33.8 % Red Cell Distribution Width 12.5 % Platelet Count 242 TH/MM3 Mean Platelet Volume 9.2 FL Neutrophils (%) (Auto) 63.5 % Lymphocytes (%) (Auto) 26.4 % Monocytes (%) (Auto) 8.3 % Eosinophils (%) (Auto) 1.5 % Basophils (%) (Auto) 0.3 % Neutrophils # (Auto) 5.4 TH/MM3 Lymphocytes # (Auto) 2.2 TH/MM3 Monocytes # (Auto) 0.7 TH/MM3 Eosinophils # (Auto) 0.1 TH/MM3 Basophils # (Auto) 0.0 TH/MM3 CBC Comment DIFF FINAL Differential Comment Blood Urea Nitrogen 14 MG/DL Creatinine 0.77 MG/DL Random Glucose 96 MG/DL Calcium Level 9.2 MG/DL Sodium Level 138 MEQ/L Potassium Level 3.4 MEQ/L Chloride Level 103 MEQ/L Carbon Dioxide Level 26.1 MEQ/L Anion Gap 9 MEQ/L Estimat Glomerular Filtration Rate 121 ML/MIN Hemoglobin A1c 5.4 % Triglycerides Level 163 MG/DL Cholesterol Level 175 MG/DL LDL Cholesterol 100 MG/DL HDL Cholesterol 42.9 MG/DL Cholesterol/HDL Ratio 4.07 RATIO Thyroid Stimulating Hormone 3rd Gen 0.996 uIU/ML Vitals/IOs Vital Signs Date Time Temp Pulse Resp B/P (MAP) Pulse Ox O2 Delivery O2 Flow Rate FiO2 04/08/17 06:06 97.5 98 18 162/90 (114) 98 Assessment & Plan Problem List: (1) Intermittent explosive disorder ICD Codes: F63.81 - Intermittent explosive disorder Status: Acute Assessment & Plan: will discontinue Haldol 5 mg im, Carbamazepine 200 mg bid. Will order propranolol 10 tid for impulse control and potential akathisia, Depakote 500 mg bid to substitute Carbamazepine for agitation and aggressive behavior. Also will order Thorazine 100 mg Im q/8 PRN aggressive behavior and agitation. Assessment & Plan Estimated LOS: days Justification for Cont. Inpt. Patient needs to continue psychiatric hospitalization for stabilization. Donovan Choe MD Apr 08, 2017 09:44
[2017-04-08] MEDS: DIVALPROEX SODIUM E.R. 500 MG TAB PO SCH ×2 (09:45→21:16)
[2017-04-08] MEDS: PROPRANOLOL HCL 10 MG TAB PO SCH ×2 (10:00→17:29)
[2017-04-08 18:01] VITALS: BP 122/78; PULSE 80; RESP 18; TEMP 98.4; O2SAT 97
[2017-04-08] MEDS: traZODone HCL 100 MG TAB PO SCH (21:17)
[2017-04-09] MEDS: PROPRANOLOL HCL 10 MG TAB PO SCH ×2 (02:12→11:00)
[2017-04-09 06:22] VITALS: BP 102/62; PULSE 67; RESP 16; TEMP 98.1; O2SAT 98
[2017-04-09] MEDS: DIVALPROEX SODIUM E.R. 500 MG TAB PO SCH (08:22)
[2017-04-09] MEDS: risperiDONE 3 MG TAB PO SCH (08:22)
[2017-04-09] MEDS: HYOSCYAMINE 0.125 MG TAB PO SCH (08:22)
[2017-04-09] MEDS: busPIRone HCL 10 MG TAB PO SCH ×2 (08:22→13:00)
[2017-04-09] MEDS ORDERED: BUSP10TA PO (13:44)
[2017-04-09] MEDS ORDERED: PROP10TA6 PO (13:44)
[2017-04-09] MEDS ORDERED: DEPA500T3 PO (13:44)
== END 2017-04-09 17:00 | disposition home or self-care (01) | DRG 883 ==
LOC: H270 18:12
PROVIDERS: ADMIT Psychiatry & Neurology Psychiatry; ATTEND Psychiatry & Neurology Psychiatry
DX: F63.81 Intermittent explosive disorder (principal); F72 Severe intellectual disabilities; Z78.1 Physical restraint status
CPT/HCPCS: 80048; 80061; 83036; 84443; 85025; J1630; J3230